=== PATIENT | female | born 1940 | race Caucasian/White ===

== ENCOUNTER 2019-05-05 18:49 | Emergency (ER) | payer OTHER, BC ==
[~2019-05-05] VITALS: Ht 160 cm; Wt 74.8 kg
[~2019-05-05 18:49] MED LIST: AZITHROMYCIN 2250 MG PO; BACTRIM DS TAB1 EACH PO; CITALOPRAM HBR40 MG PO; CLONAZEPAM 1 MG1 M1 PO; DELTASONE20 MG PO; PILOCARPINE HCL5 M1 PO; RANITIDINE HCL300 MG PO; SYNTHROID200 MCG PO; TRAMADOL 50 MG50 MG PO; WELLBUTRIN SR100 MG PO
[2019-05-05 18:51] VITALS: BP 134/59
[2019-05-05] MEDS ORDERED: ASA81BEC PO (19:12)
[2019-05-05] MEDS ORDERED: ARIMIDEX1 MG PO (19:13)
[2019-05-05] MEDS ORDERED: BUPROPION HCL100 MG PO (19:13)
[2019-05-05] MEDS ORDERED: CLONAZEPAM1 MG PO (19:14)
[2019-05-05] MEDS ORDERED: CYCLOBENZAPRINE5 MG PO (19:14)
[2019-05-05] MEDS ORDERED: CRESTOR40 MG PO (19:15)
[2019-05-05] MEDS ORDERED: DAPSONE25 MG PO (19:15)
[2019-05-05] MEDS ORDERED: TYLENOL EXTRA500 MG PO (19:16)
[2019-05-05] MEDS ORDERED: ZETIA10 MG PO (19:16)
== END 2019-05-05 19:48 | disposition home or self-care (01) ==
LOC: ER 18:49
DX: S01.01XA Laceration without foreign body of scalp, initial encounter (principal); M79.7 Fibromyalgia; Z96.653 Presence of artificial knee joint, bilateral; Z88.1 Allergy status to other antibiotic agents; Z88.6 Allergy status to analgesic agent; W18.39XA Other fall on same level, initial encounter; Y92.89 Other specified places as the place of occurrence of the external cause; Y93.89 Activity, other specified; Y99.8 Other external cause status